=== PATIENT | female | born 1940 | race Caucasian/White ===

== ENCOUNTER 2019-07-27 06:08 | Outpatient (RCR) | payer MEDICARE, OTHER, SELFPAY | END 2019-08-08 00:01 | LOC: ONCMED 06:08 | PROVIDERS: Family Provider Family Medicine; Visit Provider Internal Medicine Medical Oncology | DX: Z45.2 Encounter for adjustment and management of vascular access device (principal) | CPT/HCPCS: 96523; J1642 ==

== ENCOUNTER 2019-08-24 12:37 | Outpatient (CLI) | payer MEDICARE, OTHER, SELFPAY | END 2019-08-24 12:38 | disposition home or self-care (01) | LOC: ONCMED 12:45 | PROVIDERS: Family Provider Family Medicine; PCP Family Medicine; Visit Provider Internal Medicine Medical Oncology | DX: Z45.2 Encounter for adjustment and management of vascular access device (principal) | CPT/HCPCS: 96523 ==

== ENCOUNTER 2019-09-27 11:24 | Outpatient (CLI) | payer MEDICARE, OTHER, SELFPAY ==
[2019-09-27 12:07] LABS: Basophils # 0.1 10^3/uL (0.0-0.1); Basophils % 0.8 %; Eosinophils # 0.4 10^3/uL (0.0-0.8); Eosinophils % 4.9 %; Hematocrit 32.8 % (37.0-47.0); Hemoglobin 10.7 g/dL (11.5-15.3); Lymphocytes # 0.9 10^3/uL (0.8-4.8); Lymphocytes % 12.3 %; Mean Corpuscular HGB Conc 32.6 g/dL (30.0-36.0); Mean Corpuscular Hemoglobin 28.8 pg (28.0-34.0); Mean Corpuscular Volume 88.2 fL (81-99); Mean Platelet Volume 9.8 fL (7.4-10.4); Monocytes # 0.9 10^3/uL (0.2-0.9); Monocytes % 11.9 %; Neutrophils # 4.9 10^3/uL (1.8-7.7); Neutrophils % 69.3 %; Nucleated Red Blood Cells % 0 %; Platelet Count 267 10^3/cmm (130-400); Red Blood Count 3.72 10^6/uL (4.1-5.3); Red Cell Distribution Width 13.2 % (12.1-15.1); White Blood Count 7.1 10^3/uL (4.0-10.0)
[2019-09-27 12:27] LABS: Estmated Average Glucose 143; Hemoglobin A1C 6.6 % (4.0-6.0)
[2019-09-27 12:30] LABS: Alanine Aminotransferase < 5 U/L (0-33); Alkaline Phosphatase 56 IU/L (35-105); Anion Gap 19.9 (5-19); Aspartate Amino Transferase 15 U/L (0-32); Blood Urea Nitrogen 39 mg/dL (8-23); Calcium 10.1 mg/dL (8.5-10.5); Carbon Dioxide 23 mmol/L (22-29); Chloride 96 mmol/L (98-107); Glucose 146 mg/dL (65-115); Lactate Dehydrogenase 270 U/L (135-214); Potassium 3.9 mmol/L (3.5-5.1); Sodium 135 mmol/L (136-145); Thyroid Stimulating Hormone 5.38 uIU/mL (0.27-4.20); Total Bilirubin 0.4 mg/dL (0.15-1.2)
[2019-09-27 15:10] LABS: Iron 70 ug/dL (37-145); Total Iron Binding Capacity 241 mcg/dl; Unsaturated Iron Binding 171 ug/dL (112-347)
--- NOTE | 2019-10-01 17:58 | ONC FU_ITS ---
Dr. Brooks Patient Follow-Up Note Patient: Mery Marquez Unit #: [id number]: 1940 Dicatated By: Joey Brooks M.D.Date of Visit:Sep 27, 2019 Onc Med Follow-up/Prog Note Chief Complaint: Lymphoma. History of Present Illness: This is an 78 year-old woman with recurrent non-Hodgkin's lymphoma. 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 She had stage IV disease and she had complete response after treatment with 6 cycles of R-CHOP chemotherapy. She then had a relapse of follicular lymphoma in 2009. At that time she was treated with a standard 4 week course of Rituxan followed by 2 years of maintenance Rituxan, which she completed in December of 2011. As of March 2012 there was no evidence of residual or recurrent disease on CT scans of the chest/ abdomen/pelvis. During subsequent followup at [facility], she was found to have adenopathy in the left postauricular area. This was confirmed by biopsy to be follicular lymphoma, grade 2. She also was found to have a subcutaneous nodule in the left lower quadrant abdominal wall. This was also clinically suspicious for involvement with lymphoma. CT scans apparently showed no other sites of disease, and she had opted to just continue observation. However, subsequent to her followup visit here in September 2013, she did have significant disease progression, mainly in the left lower quadrant subcutaneous nodule. It was again confirmed by biopsy to be low grade follicular lymphoma. She restarted treatment in December 2013 with a standard 4-week course of single agent Rituxan. She then continued maintenance Rituxan at 2-month intervals. As of 01/20/2016 she had completed 12 planned infusions of maintenance Rituxan. On her follow-up visit in September 2016 she did appear to be showing some enlargement of the left lower quadrant abdominal wall nodule. Her subsequent staging CT scans of the chest, abdomen, and pelvis on 09/21/2016 showed no evidence of disease progression in the chest. The abdominal wall mass measured 2.2 x 5.1 cm, which correlated very well with the clinical measurement. There was a possible cecal soft tissue mass measuring 2.2 x 2.9 cm. There were hepatic cysts present, including a suspected new subcentimeter right hepatic lobe cyst. Follow-up was recommended. There was no other lymphadenopathy noted. I had seen her for a follow-up visit on 12/17/2016. By exam, there did appear to be further progression of the left lower quadrant abdominal wall mass, which at that point measured 7 x 4 cm. There was also increased discoloration of the overlying skin. I had seen her on 01/14/2017 to discuss further treatment options. She agreed to a trial of chemotherapy with bendamustine/Rituxan. She began her 1st cycle of treatment on 01/20/2017. She had severe headache and hypertension following her day 1 treatment. We suspected this was related to her antiemetic therapy. She did better with her second cycle, and 02/17/2017, with her nausea prophylaxis was limited to Compazine only. She continued with cycle 3 on 03/17/2017 and with cycle 4 on 04/14/2017. She appeared to have a very good clinical response to the chemotherapy. She then restarted maintenance rituximab, cycle 1 on 06/15/2017. She has since then continued treatment at 2-month intervals, and she continued to tolerate it well. Restaging PET/CT on 09/10/2018 showed FDG avid left anterior abdominal wall mass measuring 2.7 x 5.4 cm, SUV 8.8. There were no other areas of abnormal uptake noted. She continued with cycle 9 of maintenance rituximab on 10/03/2018, with cycle 10 on 12/01/2018, and with cycle 11 on 01/26/2019. At that point, she continued to have significant residual mass in the left lower quadrant abdominal wall, and she then agreed to see Dr. Schumacher for radiation. She completed radiation on 03/17/2019 to a total dose of 3000 cGy. She tolerated it well, and she then completed cycle 12 of maintenance rituximab on 03/23/2019.. She has multiple other medical illnesses which include non-ischemic cardiomyopathy, which apparently resulted from her chemotherapy. She has hypertension and hyperlipidemia and she also was found to have coronary artery disease. She has previously undergone coronary angioplasty and stenting of the left anterior descending artery. Her most recent MUGA scan showed her left ventricular ejection fraction up to 56%. Other illnesses include asthma, GERD, and borderline diabetes. She also has degenerative arthritis, and she underwent left total hip arthroplasty in March 2016. She has has osteoporosis and vitamin D deficiency. She has multiple vertebral compression fractures with chronic back pain. She has additional history of having undergone radioactive iodine ablation for hyperthyroidism in 1980. INTERIM HISTORY: I had seen her for a follow-up visit on 06/29/2019. At that point she appeared to be showing a good response to the radiation. She was having issues with lower extremity edema and cellulitis, for which she was given antibiotic therapy with Augmentin. She is seen for a follow-up visit. Her main complaint is that she is still having problems with swelling and redness in both legs, but whereas it had been significantly worse on the left and was just mildly involving the right leg, the reverse is now true. At her recent follow-up visit with Dr. Henson she was taken off amlodipine. She complains that her energy is low, but she is still doing light work. ECOG score is 1. She has good appetite. She does complain of having early satiety. She also has been having postprandial nausea/vomiting with heavier meals. Despite that, she has gained weight. She has not having fever or night sweats. She has no shortness of breath, cough, or chest pain. She has ongoing problems with constipation and gas. She sometimes has hesitancy with urination. She continues to have pain in her left hip and leg. She also has back pain, and recently she has been having problems with a frozen right shoulder. She does not complain of headache or dizziness. She has some numbness/tingling in the left leg. Medications: Aspirin (325 mg) Tablet Oral Take as Directed, Atacand 1 Tablet (of 32 mg) Oral daily, Carvedilol 1 (12.5 mg) Tablet Oral b.i.d., Cholecalciferol 1 Tablet (of 44349 Units) Oral daily, Crestor 1 (20 mg) Tablet Oral daily, Hydrocodone-Acetaminophen 1 Tablet (of 10-325 mg) Oral q 4 hours PRN, Ibuprofen 1 (200 mg) Tablet Oral daily PRN, Levothroid 1 (125 mcg) Tablet Oral daily, Melatonin 1 (3 mg) Capsule Oral at bedtime, Multi Complete/Iron 1 Tablet Oral daily, Omeprazole 1 (20 mg) Capsule Delayed Release Oral daily, Torsemide 1 - 2 (10 mg) Tablet Oral b.i.d. Allergies: Allopurinol, BENEDRYL, CIPRO, Dexamethasone, HCTZ, LASIX, and MORPHINE. Review of Systems: Constitutional - Her energy is low, but she still does light work. Her appetite has been okay. She has early satiety. She has gained weight. She does not have fever or night sweats. ECOG score is 1, ENMT - She has dryness in her sinuses and she has dry mouth. No sore throat or difficulty swallowing, Hematologic/Lymphatic - No abnormal bruising or bleeding, Respiratory - No shortness of breath. No cough. No pleuritic pain or hemoptysis, Cardiovascular - No angina pain. No palpitations, Gastrointestinal - She has been having postprandial nausea/vomiting with heavier meals. She has acid reflux. It is managed adequately with medication. She still complains that she has a lot of gas. She has constipation. No blood in the stool or black stools, Genitourinary (F) - She sometimes has hesitancy with urination. No dysuria or hematuria. No urinary frequency. No urgency or incontinence, Musculoskeletal - She continues to have pain in the left hip/leg following her hip replacement. She also has back pain. Recently she has had problems with a frozen right shoulder, Integumentary - She has had recurrent episodes of cellulitis in her legs, Neurologic - No headache. She occasionally has dizziness. She has some numbness/paresthesias in her left leg. She has no other focal neurologic symptoms, Psychiatric - No anxiety or depression. She has some difficulty sleeping, but she does get benefit with melatonin. Vital Signs: Performed on Sep 27, 2019 12:29 Height - 62.00 in Weight - 218.6 lbs (HIGH) BSA - 1.99 sq.m BMI - 39.98 (HIGH) Temperature - 98.2 F (LOW) Pulse - 70 /min Respiration - 24 /min BP - 143/59 mm(hg) (HIGH) O2 Sat - 97 % Pain - 7 Physical Examination: Constitutional - She looks pretty good generally, Eyes - Sclerae nonicteric. Conjunctivae clear, ENMT - There are no lesions noted in the oral cavity, Hematologic/Lymphatic - No cervical, clavicular, or axillary adenopathy noted, Respiratory - Lungs are clear with good air movement bilaterally, Cardiovascular - Heart rhythm is regular. There is a III/ systolic murmur. There is no gallop or rub noted, Abdomen - Moderately distended. Liver and spleen are not enlarged. There is no abdominal mass or ascites noted. There appears to be complete resolution of the left lower quadrant abdominal wall mass and complete resolution of the discoloration of the overlying skin. There is no inguinal adenopathy noted, Extremities - She lower extremity edema with erythema and induration of the skin. It is now worse on the right, Integumentary - There is also erythema and induration of the skin overlying the symphysis pubis, Neurologic - No focal neurologic deficits noted. Lab/Imaging: Test performed on Sep 27, 2019 11:35 Iron 70 ug/dL LDH (Total) 270 U/L Sodium 135 mmol/L TSH 5.38 uIU/mL Potassium 3.9 mmol/L Chloride 96 mmol/L CO2 23 mmol/L UIBC 171 ug/dL Anion Gap 19.9 BUN 39 mg/dL Creatinine 1.7 mg/dL Cr Clearance (Est) 41.2000 mL/min Glucose 146 mg/dL Calcium 10.1 mg/dL Protein, Total 7.0 g/dL Albumin 4.0 g/dL Globulin 3.0 g/dL Bilirubin, Total 0.4 mg/dL ALT (SGPT) < 5 U/L AST (SGOT) 15 U/L Alkaline Phosphatase 56 IU/L Hemoglobin A1C % 6.6 % WBC 7.1 10 3/uL RBC 3.72 10 6/uL HGB 10.7 g/dL HCT 32.8 % MCV 88.2 fL MCH 28.8 pg MCHC 32.6 g/dL RDW 13.2 % Platelet Count 267 10 3/cmm MPV 9.8 fL Neutrophils 4.9 10 3/uL Lymphocytes 0.9 10 3/uL Monocytes 0.9 10 3/uL Eosinophils 0.4 10 3/uL Basophils 0.1 10 3/uL Neutrophil % 69.3 % Lymphocyte % 12.3 % Monocyte % 11.9 % Eosinophil % 4.9 % Basophils % 0.8 % Impression: 1. Patient with transformed diffuse large B-cell lymphoma, diagnosed in 2005 and treated with 6 cycles of R-CHOP chemotherapy. 2. She had relapse of follicular lymphoma in 2009, treated with a 4 week course of rituximab followed by 2 years of maintenance therapy, completed in December 2011. 3. She had biopsy proven recurrence of grade 2 follicular lymphoma in March 2013. At that point she was initially managed with observation, but in January 2014 she restarted single agent rituximab due to further disease progression. She was again treated with a standard 4 week induction followed by 2 years of maintenance rituximab, completed in January 2016. Her other medical illnesses include: 4. Nonischemic cardiomyopathy. 5. Hypertension. 6. Hyperlipidemia. 7. Type II diabetes. 8. Coronary artery disease with previous angioplasty/stent placement. 9. Asthma. 10. GERD. 11. Degenerative arthritis. 12. Osteoporosis with vertebral compression fractures. 13. History of vitamin D deficiency. 14. She underwent radioactive iodine ablation for hyperthyroidism in 1980. She continued to show gradual progression of residual disease involving the left lower quadrant abdominal wall. As of her visit in December 2016 it measured 7 x 4 cm compared to 5 x 2 cm in September. She was not overtly symptomatic with it, and her staging CT scans in September showed no other obvious areas of involvement. She began on a course of chemotherapy with bendamustine/Rituxan, cycle 1 day 1 on 01/20/2017. She had significant headache and hypertension related to her day 1 anti-emetic therapy. She did well on day 2 with Compazine only, and she experienced no additional toxicity with her treatment. She began her 2nd cycle of treatment on 02/17/2017. She experienced some nausea with the chemotherapy, and she also has some fatigue. Her blood counts, though, remained adequate. She continued with cycle 3 on 03/17/2017 and was cycle 4 on 04/14/2017. She had a very good response to the chemotherapy by clinical evaluation, though she tolerated it rather poorly. She then began another course of maintenance Rituxan, cycle 1 beginning on 06/15/2017. She has been tolerating the treatment well. During this time she was found to have iron deficiency anemia, and she was given a single infusion of Injectafer in January 2018. She has now completed 9 cycles of maintenance Rituxan. She has tolerated it well. She has been showing gradual progression of disease in the left lower quadrant abdominal wall. Restaging PET/CT on 09/10/2018 showed FDG avid left anterior abdominal wall mass measuring 2.7 x 5.4 cm, SUV 8.8. There were no other areas of abnormal uptake noted. She continued her maintenance rituximab. As of 01/26/2019 she completed cycle 11 of the maintenance rituximab. At that point, she still had significant residual left lower quadrant abdominal wall mass, and she then agreed to see Dr. Schumacher for radiation. She completed treatment on 03/17/2019 to a total dose of 3000 cGy. She tolerated it well, and she then completed her cycle 12 of maintenance rituximab on 03/23/2019. During follow-up she had developed swelling and erythema in both legs. At least some component appeared to be due to cellulitis, for which she was given antibiotic therapy. She had also increased her diuretic. Initially it had improved, but recently it has gotten worse again, now involving predominantly the right leg. In the meantime, she also was taken off amlodipine. She now appears to have complete resolution of the left lower quadrant abdominal wall mass and the discoloration of the overlying skin has also resolved. There is some erythema and induration in the skin overlying the symphysis pubis. It is unclear why she has developed that problem and why she has developed the lower extremity edema/cellulitis following the radiation, as it was a very localized treatment and it was a relatively low dosage. Plan: She will remain on observation/expectant management for the lymphoma. She will continue torsemide at the same dosage. She will be given another course of treatment with Augmentin. She will be given a prescription for metoclopramide 5 mg tid ac. I will see her again in 3 months. Signed By: Joey Brooks M.D. <<Signature on File>>
== END 2019-09-27 11:25 | disposition home or self-care (01) ==
LOC: ONCMED 11:24
PROVIDERS: Family Provider Family Medicine; PCP Family Medicine; Visit Provider Internal Medicine Medical Oncology
DX: Z08 Encounter for follow-up examination after completed treatment for malignant neoplasm (principal); Z85.72 Personal history of non-Hodgkin lymphomas; I42.8 Other cardiomyopathies; L03.115 Cellulitis of right lower limb; L03.116 Cellulitis of left lower limb; I10 Essential (primary) hypertension; E78.5 Hyperlipidemia, unspecified; I25.10 Atherosclerotic heart disease of native coronary artery without angina pectoris; J45.909 Unspecified asthma, uncomplicated; K21.9 Gastro-esophageal reflux disease without esophagitis; M19.90 Unspecified osteoarthritis, unspecified site; E55.9 Vitamin D deficiency, unspecified; E89.0 Postprocedural hypothyroidism; Z79.899 Other long term (current) drug therapy; Z79.891 Long term (current) use of opiate analgesic; Z92.3 Personal history of irradiation; Z92.21 Personal history of antineoplastic chemotherapy; Z92.25 Personal history of immunosuppression therapy; Z95.5 Presence of coronary angioplasty implant and graft
CPT/HCPCS: 36415; 36591; 80053; 83036; 83540; 83550; 83615; 84443; 85025; 99214

== ENCOUNTER 2019-10-19 09:01 | Outpatient (CLI) | payer MEDICARE, OTHER, SELFPAY ==
[2019-10-19 10:01] LABS: Chol HDL Ratio 10.37 mg/dL (0.0-4.40); Cholesterol 363 mg/dL (0-200); HDL Cholesterol 35 mg/dL (60-100); LDL Cholesterol Calculated 274 mg/dL (50-129); Triglycerides 271 mg/dL (0-150); VLDL Cholestrol Calculation 54 mg/dL (0-30)
[2019-10-19 11:44] LABS: Creatinine Urine, Random 55 mg/dL (28-217); Microalbumin Random Urine 5 ug/dL (0-20)
[2019-10-19 11:48] LABS: Microalbum Creatinine Ratio Ur 91 mg/dL (0-20)
== END 2019-10-19 09:02 | disposition home or self-care (01) ==
LOC: ONCMED 09:01
PROVIDERS: Family Provider Family Medicine; PCP Family Medicine; Visit Provider Internal Medicine Medical Oncology
DX: E11.9 Type 2 diabetes mellitus without complications (principal)
CPT/HCPCS: 36591; 80061; 82044

== ENCOUNTER 2019-12-28 09:27 | Outpatient (CLI) | payer MEDICARE, OTHER, SELFPAY ==
[2019-12-28 10:11] LABS: Basophils # 0.1 10^3/uL (0.0-0.1); Basophils % 1.2 %; Eosinophils # 0.6 10^3/uL (0.0-0.8); Eosinophils % 7.7 %; Hematocrit 33.3 % (37.0-47.0); Hemoglobin 10.9 g/dL (11.5-15.3); Lymphocytes # 1.2 10^3/uL (0.8-4.8); Lymphocytes % 15.3 %; Mean Corpuscular HGB Conc 32.7 g/dL (30.0-36.0); Mean Corpuscular Volume 91.7 fL (81-99); Mean Platelet Volume 9.9 fL (7.4-10.4); Monocytes # 1.1 10^3/uL (0.2-0.9); Monocytes % 14.5 %; Neutrophils # 4.5 10^3/uL (1.8-7.7); Nucleated Red Blood Cells % 0 %; Platelet Count 301 10^3/cmm (130-400); Red Blood Count 3.63 10^6/uL (4.1-5.3); Red Cell Distribution Width 12.9 % (12.1-15.1); White Blood Count 7.5 10^3/uL (4.0-10.0)
[2019-12-28 10:13] LABS: Estmated Average Glucose 148; Hemoglobin A1C 6.8 % (4.0-6.0)
[2019-12-28 10:31] LABS: Alanine Aminotransferase < 5 U/L (0-33); Albumin Level 4.4 g/dL (3.5-5.2); Alkaline Phosphatase 55 IU/L (35-105); Anion Gap 17.1 (5-19); Aspartate Amino Transferase 15 U/L (0-32); Blood Urea Nitrogen 32 mg/dL (8-23); Calcium 10.2 mg/dL (8.5-10.5); Carbon Dioxide 26 mmol/L (22-29); Chloride 96 mmol/L (98-107); Globulin 2.2 g/dL (1.3-4.6); Glucose 119 mg/dL (65-115); Lactate Dehydrogenase 261 U/L (135-214); Osmolality Calculated 278 mOsm/kg (285-295); Potassium 4.1 mmol/L (3.5-5.1); Sodium 135 mmol/L (136-145); Thyroid Stimulating Hormone 9.54 uIU/mL (0.27-4.20); Total Bilirubin 0.4 mg/dL (0.15-1.2); Total Protein 6.6 g/dL (6.6-8.7)
--- NOTE | 2019-12-31 20:34 | ONC FU_ITS ---
Dr. Brooks Patient Follow-Up Note Patient: Mery Marquez Unit #: [id number]: 1940 Dicatated By: Joey Brooks M.D.Date of Visit:December 28, 2019 Onc Med Follow-up/Prog Note Chief Complaint: Lymphoma. History of Present Illness: This is an 78 year-old woman with recurrent non-Hodgkin's lymphoma. 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 She had stage IV disease and she had complete response after treatment with 6 cycles of R-CHOP chemotherapy. She then had a relapse of follicular lymphoma in 2009. At that time she was treated with a standard 4 week course of Rituxan followed by 2 years of maintenance Rituxan, which she completed in December of 2011. As of March 2012 there was no evidence of residual or recurrent disease on CT scans of the chest/ abdomen/pelvis. During subsequent followup at [facility], she was found to have adenopathy in the left postauricular area. This was confirmed by biopsy to be follicular lymphoma, grade 2. She also was found to have a subcutaneous nodule in the left lower quadrant abdominal wall. This was also clinically suspicious for involvement with lymphoma. CT scans apparently showed no other sites of disease, and she had opted to just continue observation. However, subsequent to her followup visit here in September 2013, she did have significant disease progression, mainly in the left lower quadrant subcutaneous nodule. It was again confirmed by biopsy to be low grade follicular lymphoma. She restarted treatment in December 2013 with a standard 4-week course of single agent Rituxan. She then continued maintenance Rituxan at 2-month intervals. As of 01/20/2016 she had completed 12 planned infusions of maintenance Rituxan. On her follow-up visit in September 2016 she did appear to be showing some enlargement of the left lower quadrant abdominal wall nodule. Her subsequent staging CT scans of the chest, abdomen, and pelvis on 09/21/2016 showed no evidence of disease progression in the chest. The abdominal wall mass measured 2.2 x 5.1 cm, which correlated very well with the clinical measurement. There was a possible cecal soft tissue mass measuring 2.2 x 2.9 cm. There were hepatic cysts present, including a suspected new subcentimeter right hepatic lobe cyst. Follow-up was recommended. There was no other lymphadenopathy noted. I had seen her for a follow-up visit on 12/17/2016. By exam, there did appear to be further progression of the left lower quadrant abdominal wall mass, which at that point measured 7 x 4 cm. There was also increased discoloration of the overlying skin. I had seen her on 01/14/2017 to discuss further treatment options. She agreed to a trial of chemotherapy with bendamustine/Rituxan. She began her 1st cycle of treatment on 01/20/2017. She had severe headache and hypertension following her day 1 treatment. We suspected this was related to her antiemetic therapy. She did better with her second cycle, and 02/17/2017, with her nausea prophylaxis was limited to Compazine only. She continued with cycle 3 on 03/17/2017 and with cycle 4 on 04/14/2017. She appeared to have a very good clinical response to the chemotherapy. She then restarted maintenance rituximab, cycle 1 on 06/15/2017. She has since then continued treatment at 2-month intervals, and she continued to tolerate it well. Restaging PET/CT on 09/10/2018 showed FDG avid left anterior abdominal wall mass measuring 2.7 x 5.4 cm, SUV 8.8. There were no other areas of abnormal uptake noted. She continued with cycle 9 of maintenance rituximab on 10/03/2018, with cycle 10 on 12/01/2018, and with cycle 11 on 01/26/2019. At that point, she continued to have significant residual mass in the left lower quadrant abdominal wall, and she then agreed to see Dr. Schumacher for radiation. She completed radiation on 03/17/2019 to a total dose of 3000 cGy. She tolerated it well, and she then completed cycle 12 of maintenance rituximab on 03/23/2019.. She has multiple other medical illnesses which include non-ischemic cardiomyopathy, which apparently resulted from her chemotherapy. She has hypertension and hyperlipidemia and she also was found to have coronary artery disease. She has previously undergone coronary angioplasty and stenting of the left anterior descending artery. Her most recent MUGA scan showed her left ventricular ejection fraction up to 56%. Other illnesses include asthma, GERD, and borderline diabetes. She also has degenerative arthritis, and she underwent left total hip arthroplasty in March 2016. She has has osteoporosis and vitamin D deficiency. She has multiple vertebral compression fractures with chronic back pain. She has additional history of having undergone radioactive iodine ablation for hyperthyroidism in 1980. INTERIM HISTORY: I had seen her for a follow-up visit on 06/29/2019. She was having issues with lower extremity edema and cellulitis, for which she was given antibiotic therapy with Augmentin. She had also developed induration in the skin overlying the symphysis area. However, by clinical evaluation she appeared to have had a very good response to the radiation. She is seen for a follow-up visit. She says she has been dragging around, but she is able to do light work at home. Her ECOG score is 1. Her appetite is okay. She still complains of early satiety. She has no fever or night sweats. She has been having really bad allergy related symptoms with redness and watering in her eyes and really bad sinus symptoms. She has some associated cough. She also has some shortness of breath with her asthma. She does not complain of chest pain. She does report having some nausea. She also has acid reflux, but she is managing it now with dietary measures. Bowel and bladder function have been okay. She has had improvement in her swelling since her last visit, as she had increased her diuretic to twice a day and she also stopped taking ibuprofen. She continues to have pain in her left hip and leg and she also has significant pain in her right shoulder. She has chronic low back pain. She occasionally gets lightheaded. She has some numbness in the left leg. She has no other focal neurologic symptoms. Medications: Aspirin (325 mg) Tablet Oral Take as Directed, Atacand 1 Tablet (of 32 mg) Oral daily, Carvedilol 1 (12.5 mg) Tablet Oral b.i.d., Cholecalciferol 1 Tablet (of 63186 Units) Oral daily, Crestor 1 (20 mg) Tablet Oral daily, Hydrocodone-Acetaminophen 1 Tablet (of 10-325 mg) Oral q 4 hours PRN, Ibuprofen 1 (200 mg) Tablet Oral daily PRN, Levothroid 1 (125 mcg) Tablet Oral daily, Melatonin 1 (3 mg) Capsule Oral at bedtime, Multi Complete/Iron 1 Tablet Oral daily, Omeprazole 1 (20 mg) Capsule Delayed Release Oral daily PRN, Torsemide 1 - 2 (10 mg) Tablet Oral b.i.d. Allergies: Allopurinol, BENEDRYL, CIPRO, Dexamethasone, HCTZ, LASIX, and MORPHINE. Review of Systems: Constitutional - She complains that she is usually dragging around, but she is doing light work at home. Her appetite has been okay, but she has early satiety. She has lost weight. She does not have fever or night sweats. ECOG score is 1, Eyes - Her eyes are red and watery from allergies, ENMT - She has really bad sinus symptoms. No sore throat or difficulty swallowing, Hematologic/Lymphatic - No abnormal bruising or bleeding, Respiratory - She has some shortness of breath with her asthma. She has some cough with the allergies. No pleuritic pain or hemoptysis, Cardiovascular - No angina pain. No palpitations, Gastrointestinal - No nausea or vomiting. She has acid reflux, but she is now managing it with dietary measures. Her bowels have been okay lately. No blood in the stool or black stools, Genitourinary (F) - Bladder function has been okay. No dysuria or hematuria. No urinary frequency. No urgency or incontinence, Musculoskeletal - She continues to have pain in the left hip/leg following her hip replacement. She has pain in her right shoulder, and she has chronic back pain, Integumentary - She was having recurrent episodes of cellulitis in her legs, but that has been better lately, Neurologic - No headache. She occasionally has lightheadedness. She has some numbness in her left leg. She has no other focal neurologic symptoms, Psychiatric - No anxiety or depression. She sleeps okay with melatonin. Vital Signs: Performed on December 28, 2019 11:31 Height - 62.00 in Weight - 206.0 lbs (LOW) BSA - 1.94 sq.m BMI - 37.68 (HIGH) Temperature - 98.3 F (LOW) Pulse - 80 /min Respiration - 26 /min BP - 140/78 mm(hg) O2 Sat - 97 % Pain - 7 Physical Examination: Constitutional - She appears somewhat weak generally, Eyes - Her eyes do appear red and watery. Sclerae nonicteric, ENMT - There are no lesions noted in the oral cavity, Hematologic/Lymphatic - There is no cervical or clavicular adenopathy noted. There are palpable axillary lymph nodes bilaterally, in the range of 2 to 3 cm, Respiratory - Lungs are clear with good air movement bilaterally, Cardiovascular - Heart rhythm is regular. There is a III/ systolic murmur. There is no gallop or rub noted, Abdomen - Moderately distended. Liver and spleen are not enlarged. There is no abdominal mass or ascites noted. There has been resolution of the left lower quadrant abdominal wall mass and complete resolution of the discoloration of the overlying skin. There is no inguinal adenopathy noted, Extremities - There is just mild lower extremity edema and just slight residual erythema of the lower legs, Integumentary - There is persistent induration of the skin overlying the symphysis area. It does appear to be worse on the right side, Neurologic - No focal neurologic deficits noted. Lab/Imaging: Test performed on December 28, 2019 09:48 LDH (Total) 261 U/L Sodium 135 mmol/L TSH 9.54 uIU/mL Potassium 4.1 mmol/L Chloride 96 mmol/L CO2 26 mmol/L Anion Gap 17.1 BUN 32 mg/dL Creatinine 1.6 mg/dL Cr Clearance (Est) 43.0500 mL/min Glucose 119 mg/dL Calcium 10.2 mg/dL Protein, Total 6.6 g/dL Albumin 4.4 g/dL Globulin 2.2 g/dL Bilirubin, Total 0.4 mg/dL ALT (SGPT) < 5 U/L AST (SGOT) 15 U/L Alkaline Phosphatase 55 IU/L Hemoglobin A1C % 6.8 % WBC 7.5 10 3/uL RBC 3.63 10 6/uL HGB 10.9 g/dL HCT 33.3 % MCV 91.7 fL MCH 30.0 pg MCHC 32.7 g/dL RDW 12.9 % Platelet Count 301 10 3/cmm MPV 9.9 fL Neutrophils 4.5 10 3/uL Lymphocytes 1.2 10 3/uL Monocytes 1.1 10 3/uL Eosinophils 0.6 10 3/uL Basophils 0.1 10 3/uL Neutrophil % 60.0 % Lymphocyte % 15.3 % Monocyte % 14.5 % Eosinophil % 7.7 % Basophils % 1.2 % Impression: 1. Patient with transformed diffuse large B-cell lymphoma, diagnosed in 2005 and treated with 6 cycles of R-CHOP chemotherapy. 2. She had relapse of follicular lymphoma in 2009, treated with a 4 week course of rituximab followed by 2 years of maintenance therapy, completed in December 2011. 3. She had biopsy proven recurrence of grade 2 follicular lymphoma in March 2013. At that point she was initially managed with observation, but in January 2014 she restarted single agent rituximab due to further disease progression. She was again treated with a standard 4 week induction followed by 2 years of maintenance rituximab, completed in January 2016. Her other medical illnesses include: 4. Nonischemic cardiomyopathy. 5. Hypertension. 6. Hyperlipidemia. 7. Type II diabetes. 8. Coronary artery disease with previous angioplasty/stent placement. 9. Asthma. 10. GERD. 11. Degenerative arthritis. 12. Osteoporosis with vertebral compression fractures. 13. History of vitamin D deficiency. 14. She underwent radioactive iodine ablation for hyperthyroidism in 1980. She continued to show gradual progression of residual disease involving the left lower quadrant abdominal wall. As of her visit in December 2016 it measured 7 x 4 cm compared to 5 x 2 cm in September. She was not overtly symptomatic with it, and her staging CT scans in September showed no other obvious areas of involvement. She began on a course of chemotherapy with bendamustine/Rituxan, cycle 1 day 1 on 01/20/2017. She had significant headache and hypertension related to her day 1 anti-emetic therapy. She did well on day 2 with Compazine only, and she experienced no additional toxicity with her treatment. She began her 2nd cycle of treatment on 02/17/2017. She experienced some nausea with the chemotherapy, and she also has some fatigue. Her blood counts, though, remained adequate. She continued with cycle 3 on 03/17/2017 and was cycle 4 on 04/14/2017. She had a very good response to the chemotherapy by clinical evaluation, though she tolerated it rather poorly. She then began another course of maintenance Rituxan, cycle 1 beginning on 06/15/2017. She has been tolerating the treatment well. During this time she was found to have iron deficiency anemia, and she was given a single infusion of Injectafer in January 2018. She has now completed 9 cycles of maintenance Rituxan. She has tolerated it well. She has been showing gradual progression of disease in the left lower quadrant abdominal wall. Restaging PET/CT on 09/10/2018 showed FDG avid left anterior abdominal wall mass measuring 2.7 x 5.4 cm, SUV 8.8. There were no other areas of abnormal uptake noted. She continued her maintenance rituximab. As of 01/26/2019 she completed cycle 11 of the maintenance rituximab. At that point, she still had significant residual left lower quadrant abdominal wall mass, and she then agreed to see Dr. Schumacher for radiation. She completed treatment on 03/17/2019 to a total dose of 3000 cGy. She tolerated it well, and she then completed her cycle 12 of maintenance rituximab on 03/23/2019. During follow-up she had developed swelling and erythema in both legs. At least some component appeared to be due to cellulitis, for which she was given antibiotic therapy. She had also increased her diuretic. At her follow-up visit in September 2019 she was still having problems with lower extremity edema and cellulitis. She had also developed significant induration in the skin overlying the symphysis area. However, she did appear to have a very good response to the radiation by clinical evaluation. At this point she continues to have somewhat marginal performance status, mainly due to her underlying degenerative arthritis. She continues to have significant skin induration in the area overlying the symphysis. It is significantly worse on the right side. The lower extremity edema and cellulitis have improved. As previously noted, her left lower quadrant abdominal mass appears to have completely resolved. However, she does have some new axillary lymphadenopathy. Plan: She is aware that the axillary adenopathy is likely due to progression of the lymphoma. As long as it is not symptomatic, she can continue on observation/expectant management. The current lab results will be forwarded to Dr. Iabrra. I will plan to see her again in 3 months, or sooner as needed. Signed By: Joey Brooks M.D. <<Signature on File>>
== END 2019-12-28 09:28 | disposition home or self-care (01) ==
LOC: ONCMED 09:34
PROVIDERS: PCP Family Medicine; Visit Provider Internal Medicine Medical Oncology
DX: C82.18 Follicular lymphoma grade II, lymph nodes of multiple sites (principal); I42.8 Other cardiomyopathies; I10 Essential (primary) hypertension; E78.5 Hyperlipidemia, unspecified; E11.9 Type 2 diabetes mellitus without complications; I25.10 Atherosclerotic heart disease of native coronary artery without angina pectoris; Z95.5 Presence of coronary angioplasty implant and graft; Z95.1 Presence of aortocoronary bypass graft; J45.909 Unspecified asthma, uncomplicated; K21.9 Gastro-esophageal reflux disease without esophagitis; M19.90 Unspecified osteoarthritis, unspecified site; M48.50XD Collapsed vertebra, not elsewhere classified, site unspecified, subsequent encounter for fracture with routine healing; Z86.39 Personal history of other endocrine, nutritional and metabolic disease; Z92.3 Personal history of irradiation; Z92.21 Personal history of antineoplastic chemotherapy
CPT/HCPCS: 36591; 80053; 83036; 83615; 84443; 85025; 99214